=== PATIENT | female | born 1985 | race Hispanic/Latino ===

== ENCOUNTER 2022-05-11 14:36 | Observation (INO) | payer OTHER ==
[~2022-05-11] VITALS: Ht 160 cm; Wt 113.4 kg
[2022-05-11 15:16] LABS: APPEARANCE,URINE CLEAR (CLEAR); BILIRUBIN,URINE NEGATIVE (NEGATIVE); COLOR,URINE YELLOW (YELLOW); GLUCOSE, URINE (UA) NEGATIVE (NEGATIVE); KETONES,URINE NEGATIVE (NEGATIVE); LEUKOCYTE ESTERASE ,URINE NEGATIVE (NEGATIVE); NITRATE,URINE NEGATIVE (NEGATIVE); OCCULT BLOOD,URINE NEGATIVE (NEGATIVE); PROTEIN,URINE NEGATIVE (NEGATIVE); UROBILINOGEN,URINE 0.2 mg/dL (0.2-1.0)
[2022-05-11 15:30] LABS: BASOPHILS % (AUTO) 0.2 % (0.0-5.0); EOSINOPHILS % (AUTO) 0.5 % (0.0-8.0); HEMATOCRIT 35.6 % (36-48); LYMPHOCYTES % (AUTO) 17.6 % (21.0-51.0); MEAN CORPUSCULAR HEMOGLOBIN 25.4 pg (27.0-33.0); MEAN CORPUSCULAR HGB CONC 32.3 g/dL (32.0-36.0); MEAN CORPUSCULAR VOLUME 78.6 fL (79-99); MONOCYTES % (AUTO) 5.1 % (3.0-13.0); NEUTROPHILS % (AUTO) 76.1 % (40.0-77.0); PLATELET COUNT (AUTO) 209 K/uL (130-400); RED BLOOD CELL COUNT(AUTO) 4.53 MIL/uL (4.00-5.50); RED CELL DISTRIBUTION WIDTH 14.8 % (11.0-15.5); WHITE BLOOD COUNT (AUTO) 11.2 K/uL (4.8-10.8)
[2022-05-11 15:40] LABS: INR 0.93 (0.85-1.15); PROTHROMBIN TIME 9.4 SEC (9.6-11.6)
[2022-05-11 15:51] LABS: ALBUMIN 2.5 g/dL (3.5-5.0); CREATININE 0.6 mg/dL (0.5-1.5); POTASSIUM 3.9 mmol/L (3.5-5.1); TOTAL PROTEIN, SERUM 6.6 g/dL (6.0-8.3); URIC ACID 4.3 mg/dL (2.6-7.2)
[2022-05-11 16:33] LABS: THYROID STIMULATING HORMONE 3.6 uIU/mL (0.36-3.74)
[2022-05-11] MEDS: LACTATED RINGERS 1000ML IV SCH (16:53)
== END 2022-05-11 17:25 | disposition home or self-care (01) ==
LOC: LDH 14:36
PROVIDERS: ADMIT Obstetrics & Gynecology; ATTEND Obstetrics & Gynecology
DX: O26.893 Other specified pregnancy related conditions, third trimester (principal); R03.0 Elevated blood-pressure reading, without diagnosis of hypertension; O36.8330 Maternal care for abnormalities of the fetal heart rate or rhythm, third trimester, not applicable or unspecified; Z3A.38 38 weeks gestation of pregnancy; Z79.899 Other long term (current) drug therapy
CPT/HCPCS: 59025; 96360; 84443; 84550; 80053; 85025; 85384; 85610; 85730; 84439; 81003; 36415; 76805; G0378 ×2; G0379; J7120; A4351

== ENCOUNTER 2024-06-06 14:49 | Observation (INO) | payer OTHER ==
[~2024-06-06] VITALS: Ht 160 cm; Wt 120.7 kg
[~2024-06-06 14:49] MED LIST: ACET-2079 PO; DOCU-116 PO; IBUP-2077 PO; LEVO100C4 PO; PREN1TAB80 PO
[2024-06-06 14:53] VITALS: BP 138/78; PULSE 97; RESP 18; TEMP 98.3
[2024-06-06 16:00] LABS: BASOPHILS # (AUTO) 0.02 K/uL (0.00-0.20); BASOPHILS % (AUTO) 0.2 % (0.0-5.0); EOSINOPHILS # (AUTO) 0.07 K/uL (0.00-0.70); EOSINOPHILS % (AUTO) 0.8 % (0.0-8.0); HEMATOCRIT 32.6 % (36-48); IMMATURE GRANULOCYTE ABSOLUTE 0.05 K/uL (0-1); LYMPHOCYTES # (AUTO) 1.7 K/uL (1.0-4.8); LYMPHOCYTES % (AUTO) 17.8 % (21.0-51.0); MEAN CORPUSCULAR HEMOGLOBIN 23.4 pg (27.0-33.0); MEAN CORPUSCULAR VOLUME 75.6 fL (79-99); MONOCYTES # (AUTO) 0.5 K/uL (0.1-1.0); MONOCYTES % (AUTO) 5.3 % (3.0-13.0); NEUTROPHILS % (AUTO) 75.4 % (40.0-77.0); PLATELET COUNT (AUTO) 191 K/uL (130-400); RED BLOOD CELL COUNT(AUTO) 4.31 MIL/uL (4.00-5.50); RED CELL DISTRIBUTION WIDTH 15.7 % (11.0-15.5); WHITE BLOOD COUNT (AUTO) 9.3 K/uL (4.8-10.8)
[2024-06-06 16:10] LABS: CREATININE 0.7 mg/dL (0.5-1.0); POTASSIUM 4.1 mmol/L (3.5-5.1)
[2024-06-06 16:11] LABS: INR <= 0.93 (0.85-1.15); PROTHROMBIN TIME 9.9 SEC (9.6-11.6)
[2024-06-06 16:13] LABS: PARTIAL THROMBOPLASTIN TIME 28.6 SEC (26.3-35.5)
[2024-06-06 16:15] LABS: ALBUMIN 2.1 g/dL (3.5-5.0); BILIRUBIN,TOTAL 0.3 mg/dL (0.2-1.0); TOTAL PROTEIN, SERUM 5.9 g/dL (6.0-8.3); URIC ACID 5.3 mg/dL (2.6-7.2)
[2024-06-06 16:30] LABS: FIBRINOGEN 654 mg/dL (180-350)
[2024-06-06 16:47] LABS: APPEARANCE,URINE CLOUDY (CLEAR); BILIRUBIN,URINE NEGATIVE (NEGATIVE); COLOR,URINE YELLOW (YELLOW); GLUCOSE, URINE (UA) NEGATIVE (NEGATIVE); KETONES,URINE NEGATIVE (NEGATIVE); LEUKOCYTE ESTERASE ,URINE 75 Leu/uL (NEGATIVE); NITRATE,URINE NEGATIVE (NEGATIVE); OCCULT BLOOD,URINE NEGATIVE (NEGATIVE); PROTEIN,URINE 200 mg/dL (NEGATIVE); UROBILINOGEN,URINE 0.2 mg/dL (0.2-1.0)
[2024-06-06 16:48] LABS: ADD UA MICROSCOPIC YES
[2024-06-06 16:52] LABS: BACTERIA,URINE FEW /HPF (None Seen); MUCUS,URINE RARE LPF (None Seen); SQUAMOUS EPITHELIAL CELL,UR FEW /HPF (0-2); YEAST,URINE BUDDING FEW /HPF (None Seen)
[2024-06-06] MEDS: LACTATED RINGERS 1000ML 1,000 ML IV SCH (17:27)
== END 2024-06-06 19:13 | disposition home or self-care (01) ==
LOC: EDH 14:49 → LDH 14:50
PROVIDERS: ADMIT Obstetrics & Gynecology; ATTEND Obstetrics & Gynecology
DX: O14.93 Unspecified pre-eclampsia, third trimester (principal); Z3A.37 37 weeks gestation of pregnancy; Z79.899 Other long term (current) drug therapy
CPT/HCPCS: 96372; 96360; 96361; 84550; 80053; 85025; 85384; 85610; 85730; 86850; 86900; 86901; 87086 ×2; 87186; 81001; 36415; G0378 ×4; G0379; J3105

== ENCOUNTER 2024-06-10 08:00 | Inpatient (IN) | payer OTHER ==
[~2024-06-10] VITALS: Ht 160 cm; Wt 122.0 kg
[2024-06-10] MEDS ORDERED: LACTATED RINGERS 1000ML 1,000 ML IV PRN (08:30)
[2024-06-10] MEDS ORDERED: LACTATED RINGERS 1000ML 1,000 ML IV SCH (08:30)
[2024-06-10] MEDS ORDERED: ceFAZolin SODIUM 1 GM VIAL IVPB PRN (08:30)
[2024-06-10 08:40] LABS: APPEARANCE,URINE CLOUDY (CLEAR); BILIRUBIN,URINE NEGATIVE (NEGATIVE); COLOR,URINE YELLOW (YELLOW); GLUCOSE, URINE (UA) NEGATIVE (NEGATIVE); KETONES,URINE NEGATIVE (NEGATIVE); LEUKOCYTE ESTERASE ,URINE 25 Leu/uL (NEGATIVE); NITRATE,URINE NEGATIVE (NEGATIVE); PH,URINE 6.5 (5.0-8.0); PROTEIN,URINE 300 mg/dL (NEGATIVE); UROBILINOGEN,URINE 0.2 mg/dL (0.2-1.0)
[2024-06-10 08:48] LABS: ADD UA MICROSCOPIC YES
[2024-06-10 08:49] LABS: BACTERIA,URINE RARE /HPF (None Seen); MUCUS,URINE RARE LPF (None Seen); SQUAMOUS EPITHELIAL CELL,UR MANY /HPF (0-2)
[2024-06-10 09:42] LABS: HEMATOCRIT 32.2 % (36-48); MEAN CORPUSCULAR HGB CONC 32.3 g/dL (32.0-36.0); MEAN CORPUSCULAR VOLUME 74.2 fL (79-99); RED BLOOD CELL COUNT(AUTO) 4.34 MIL/uL (4.00-5.50); RED CELL DISTRIBUTION WIDTH 15.9 % (11.0-15.5); WHITE BLOOD COUNT (AUTO) 8.7 K/uL (4.8-10.8)
[2024-06-10] MEDS ORDERED: dexaMETHasone SOD PHOSPHATE 10MG/ML 1ML VIAL ONE (10:00)
[2024-06-10] MEDS ORDERED: FENTanyl CITRate PF 50 MCG/1 ML 2ML VIAL ONE (10:00)
[2024-06-10] MEDS ORDERED: ondanSETRON 4MG INJ ONE (10:00)
[2024-06-10] MEDS ORDERED: morPHINE PF 100MG/10ML AMP IV ONE (10:01)
[2024-06-10] MEDS: ceFAZolin SODIUM 3 GM VIAL IVPB ONE (10:10)
[2024-06-10] MEDS ORDERED: 0.9%NACL 10ML VIAL IVP PRN (11:30)
[2024-06-10] MEDS ORDERED: MEPERIDINE-PF 75 MG/ML SYG IM PRN (11:30)
[2024-06-10] MEDS ORDERED: PROMETHAZINE HCL 25 MG/ML 1ML AMPULE IM PRN (11:30)
[2024-06-10 13:55] VITALS: BP 117/71; PULSE 60; RESP 18; TEMP 97.9
[2024-06-10] MEDS ORDERED: LEVO88CA4 PO (14:36)
[2024-06-10] MEDS ORDERED: LIOT5TAB11 PO (14:36)
[2024-06-10] MEDS ORDERED: PREN1TAB80 PO (14:36)
[2024-06-10 16:00] VITALS: BP 140/87; PULSE 74; RESP 18; TEMP 97.6
[2024-06-10] MEDS: DEXTROSE 5 %-0.45 % NACL 1,000 ML IV PRN (17:28)
[2024-06-10] MEDS: CALDOLOR 800MG+NS 250ML 250 ML IV SCH (19:07)
[2024-06-10 20:00] VITALS: BP 132/74; PULSE 89; RESP 17; TEMP 97.7
[2024-06-10 23:35] VITALS: BP 147/66; PULSE 73; RESP 18; TEMP 98.3
[2024-06-11] MEDS: CALDOLOR 800MG+NS 250ML 250 ML IV PRN (03:18)
[2024-06-11 03:31] VITALS: BP 108/42; PULSE 73; RESP 18; TEMP 97.7
[2024-06-11] MEDS ORDERED: BisaCODYL 10 MG SUPP.RECT RC PRN ×2 (04:00→08:00)
[2024-06-11] MEDS ORDERED: LANOLIN 30GM OINTMENT TP PRN ×3 (04:00→08:00)
[2024-06-11] MEDS ORDERED: acetaMINOPHEN 500 MG TABLET PO PRN ×2 (04:00→08:00)
[2024-06-11] MEDS ORDERED: HYDROcodone/APAP 5/325 1 TAB TABLET PO PRN ×2 (04:00→08:00)
[2024-06-11 06:53] LABS: BASOPHILS # (AUTO) 0.02 K/uL (0.00-0.20); BASOPHILS % (AUTO) 0.2 % (0.0-5.0); EOSINOPHILS # (AUTO) 0.02 K/uL (0.00-0.70); EOSINOPHILS % (AUTO) 0.2 % (0.0-8.0); HEMATOCRIT 25.2 % (36-48); IMMATURE GRANULOCYTE ABSOLUTE 0.04 K/uL (0-1); LYMPHOCYTES # (AUTO) 1.7 K/uL (1.0-4.8); LYMPHOCYTES % (AUTO) 15.8 % (21.0-51.0); MEAN CORPUSCULAR HEMOGLOBIN 23.7 pg (27.0-33.0); MEAN CORPUSCULAR HGB CONC 31.3 g/dL (32.0-36.0); MEAN CORPUSCULAR VOLUME 75.4 fL (79-99); MONOCYTES # (AUTO) 0.7 K/uL (0.1-1.0); MONOCYTES % (AUTO) 6.3 % (3.0-13.0); NEUTROPHILS # (AUTO) 8.3 K/uL (1.8-7.7); NEUTROPHILS % (AUTO) 77.1 % (40.0-77.0); PLATELET COUNT (AUTO) 190 K/uL (130-400); RED BLOOD CELL COUNT(AUTO) 3.34 MIL/uL (4.00-5.50); RED CELL DISTRIBUTION WIDTH 15.9 % (11.0-15.5); WHITE BLOOD COUNT (AUTO) 10.8 K/uL (4.8-10.8)
[2024-06-11 07:30] VITALS: BP 122/69; PULSE 76; RESP 18; TEMP 98.2
[2024-06-11] MEDS: levoTHYROxine 88 MCG TABLET PO SCH (07:30)
[2024-06-11] MEDS: Liothyronine Sodium 5 MCG PO SCH (07:30)
[2024-06-11] MEDS ORDERED: acetaMINOPHEN WITH coDEINE 1 TAB TAB PO PRN (08:00)
[2024-06-11] MEDS: FLU VACC TS2024-25(6MOS UP)/PF 45 MCG/0.5 ML ML IM ONE (09:15)
[2024-06-11] MEDS: DIPH,PERTUSS(ACELL),TET VAC/PF 0.5 ML VIAL IM SCH (09:15)
[2024-06-11] MEDS: doCUSate SODIUM 100 MG CAP PO SCH (09:30)
[2024-06-11] MEDS: SIMETHICONE 80 MG TAB.CHEW PO PRN (09:30)
[2024-06-11] MEDS: acetaMINOPHEN WITH coDEINE 1 TAB TAB PO PRN (09:42)
[2024-06-11 11:20] VITALS: BP 120/57; PULSE 88; RESP 18; TEMP 97.8
[2024-06-11] MEDS: ibuPROFEN 800 MG TAB PO SCH (11:20)
[2024-06-11] MEDS ORDERED: ibuPROFEN 800 MG TAB PO SCH (11:30)
[2024-06-11 15:15] VITALS: BP 122/56; PULSE 81; RESP 18; TEMP 97.9
[2024-06-11 19:20] VITALS: BP 125/64; PULSE 103; RESP 20; TEMP 98.6
[2024-06-11 23:36] VITALS: BP 137/77; PULSE 88; RESP 20; TEMP 97.7
[2024-06-12 02:49] VITALS: BP 132/79; PULSE 84; RESP 20; TEMP 97.5
[2024-06-12 07:20] VITALS: BP 127/58; PULSE 93; RESP 18; TEMP 98.2
[2024-06-12 11:15] VITALS: BP 130/74; PULSE 88; RESP 18; TEMP 98.1
[2024-06-12 16:00] VITALS: BP 129/68; PULSE 81; RESP 18; TEMP 98
[2024-06-12] MEDS: ibuPROFEN 600 MG TABLET PO PRN (18:50)
[2024-06-12 19:27] VITALS: BP 131/83; PULSE 87; RESP 20; TEMP 98.1
[2024-06-13] VITALS: BP 131/83; PULSE 81; RESP 20; TEMP 98.5
[2024-06-13 04:00] VITALS: BP 126/74; PULSE 95; RESP 18; TEMP 97.9
[2024-06-13 08:46] VITALS: BP 137/89; PULSE 103; RESP 18; TEMP 97.8
[2024-06-13 12:25] VITALS: BP 121/83; PULSE 90; RESP 18; TEMP 98.3
== END 2024-06-13 12:35 | disposition home or self-care (01) | DRG 788 ==
LOC: LDH 08:00 → WSH 14:00
PROVIDERS: ADMIT Obstetrics & Gynecology; ATTEND Obstetrics & Gynecology
PROC: 10D00Z1 Extraction of Products of Conception, Low, Open Approach (ICD-10-PCS; principal; 2024-06-10 10:06)
PROC: 3E02340 Introduction of Influenza Vaccine into Muscle, Percutaneous Approach (ICD-10-PCS; 2024-06-11)
DX: O14.04 Mild to moderate pre-eclampsia, complicating childbirth (principal); O34.211 Maternal care for low transverse scar from previous cesarean delivery; O40.3XX0 Polyhydramnios, third trimester, not applicable or unspecified; O99.214 Obesity complicating childbirth; O99.284 Endocrine, nutritional and metabolic diseases complicating childbirth; O77.0 Labor and delivery complicated by meconium in amniotic fluid; E03.9 Hypothyroidism, unspecified; Z37.0 Single live birth; Z3A.37 37 weeks gestation of pregnancy; Z23 Encounter for immunization
CPT/HCPCS: 36415; 59510; 81001; 85025; 85027; 86592; 86850; 86900; 86901; 87340; 90715; A4344; G0008; G0378; J0690; J1100; J1741; J2274; J2405; J3010; J7042; J7060; J7120; Q2035; A4248; A9272; C1765; Q2038